=== PATIENT | female | born 1980 | race African-American/Black ===

== ENCOUNTER 2017-07-01 21:59 | Emergency (ER) | payer OTHER ==
[2017-07-01 22:02] VITALS: BP 130/78; PULSE 79; TEMP 98; BMI 32.6
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
[2017-07-01] MEDS ORDERED: IBUPROFEN 400 MG TABLET (FP) PO ONE ×2 (22:53→22:54)
== END 2017-07-01 22:51 | disposition home or self-care (01) ==
LOC: JERFT 21:59
DX: M54.5 Low back pain (principal); S13.4XXA Sprain of ligaments of cervical spine, initial encounter; V03.90XA Pedestrian on foot injured in collision with car, pick-up truck or van, unspecified whether traffic or nontraffic accident, initial encounter; Y93.89 Activity, other specified; Y92.410 Unspecified street and highway as the place of occurrence of the external cause
CPT/HCPCS: 72070-TC; 72100-TC; 99281-25